=== PATIENT | male | born 1990 | race African-American/Black ===

== ENCOUNTER 2025-02-25 03:49 | Emergency (ER) | payer OTHER ==
[~2025-02-25] VITALS: Ht 180.3 cm; Wt 78.0 kg
[2025-02-25 04:06] VITALS: O2SAT 98
[2025-02-25] MEDS: ONDANSETRON HCL 4MG/2ML INJ IV ONE (05:41)
[2025-02-25] MEDS: MORPHINE SULFATE 4 MG/ML INJ (FOR IV/IM USE) IV ONE (05:42)
[2025-02-25 05:43] LABS: HEMATOCRIT. 48.5 % (42.0-52.0); HEMOGLOBIN. 16.2 g/dL (14.0-18.0); MEAN PLATELET VOLUME 9.6 fl (7.4-10.4); PLATELET 253 x1000/uL (130-400); RED BLOOD CELL COUNT 5.29 mill/uL (4.7-6.1); RED CELL DISTRIBUTION WIDTH 12.9 % (11.6-14.6)
[2025-02-25] MEDS: SODIUM CHLORIDE 0.9% 1,000 ML IV ONE (05:43)
[2025-02-25 05:58] LABS: CREATININE 1.4 mg/dL (0.6-1.3)
[2025-02-25 05:59] LABS: UREA NITROGEN BLOOD 21 mg/dL (9-23)
[2025-02-25 06:00] LABS: ASPARTATE AMINOTRANSFERASE 22 IU/L (<34); BILIRUBIN DIRECT 0.3 mg/dL (<=3.0)
[2025-02-25 06:01] LABS: BILIRUBIN TOTAL 1.6 mg/dL (0.1-1.0); PROTEIN TOTAL 9.2 g/dL (6.0-8.3)
[2025-02-25] MEDS ORDERED: ONDA4TAB50 PO (07:16)
[2025-02-25 07:23] LABS: LYMPHOCYTES % MANUAL 7.0 % (20.0-50.0); MONOCYTES % MANUAL 7.0 % (2.0-8.0); NEUTROPHILS % MANUAL 86.0 % (45.0-75.0); PLATELET ESTIMATE NORMAL
[2025-02-25 07:37] VITALS: BP 137/93; PULSE 84; RESP 12; TEMP 36.9; O2SAT 97
== END 2025-02-25 07:47 | disposition home or self-care (01) ==
LOC: ER 03:49
DX: K52.9 Noninfective gastroenteritis and colitis, unspecified (principal)
CPT/HCPCS: 80076; 80048; 83690; 85025; 36415; 71045; 76705; 96361; 96374; 96375; 99285; J2405; J2270; J7030; Z7610